=== PATIENT | male | born 1970 | race Caucasian/White ===

== ENCOUNTER 2019-03-15 10:34 | Emergency (ER) | payer SELFPAY ==
[~2019-03-15] VITALS: Ht 182.9 cm; Wt 86.4 kg
[~2019-03-15 10:34] MED LIST: BACTRIM DS 8001 TAB PO; FLOMAX0.4 MG PO; NO HOME MEDICATIONS; NORCO 325 MG-51 TAB PO
[2019-03-15] MEDS ORDERED: NORCO 7.5-3251 EACH PO (13:57)
[2019-03-15 14:00] VITALS: BP 112/67
== END 2019-03-15 14:15 | disposition home or self-care (01) ==
LOC: ED 10:34
DX: S32.040A Wedge compression fracture of fourth lumbar vertebra, initial encounter for closed fracture (principal); F17.210 Nicotine dependence, cigarettes, uncomplicated; Z23 Encounter for immunization; W17.89XA Other fall from one level to another, initial encounter; Y92.69 Other specified industrial and construction area as the place of occurrence of the external cause; Y99.0 Civilian activity done for income or pay

== ENCOUNTER → 2020-06-26 | Outpatient (CLI) | payer SELFPAY ==
[~2020-06-26] MED LIST changes: +NORCO 7.5-3251 EACH PO
[2020-06-26 10:42] LABS: EOS % 0.4 % (0.0-4.0); HEMATOCRIT 43.5 % (42.0-52.0); HEMOGLOBIN 14.5 g/dL (13.5-18.0); LYMPH# 1.5 (1.50-4.00); MEAN CELL VOLUME 91 fl (78-100); MEAN CORPUSCULAR HEMOGLOBIN 30 pg (27-31); MEAN CORPUSCULAR HGB CONC 33 g/dL (33-37); MEAN PLATELET VOLUME 9.6 fl (7.4-10.4); MONO # 0.5 (0.20-0.80); NEU # 2.6 (1.40-6.50); PLATELET COUNT 220 K/mm3 (130-400); RED BLOOD COUNT 4.78 M/mm3 (4.20-5.60); RED CELL DISTRIBUTION WIDTH 12.2 % (11.5-14.5); WHITE BLOOD COUNT 4.6 K/mm3 (4.8-10.8)
[2020-06-26 10:55] LABS: ALBUMIN 4.3 g/dL (3.5-5.0)
[2020-06-26 10:56] LABS: CALCIUM 9.2 mg/dL (8.3-10.5)
[2020-06-26 10:58] LABS: GLUCOSE 103 mg/dL (75-110); TOTAL PROTEIN 7.4 g/dL (6.4-8.3)
[2020-06-26 10:59] LABS: CARBON DIOXIDE 27 mmol/L (22-29); TOTAL BILIRUBIN 0.4 mg/dL (0.2-1.2)
[2020-06-26 11:03] LABS: AST-SGOT 20 U/L (5-34)
[2020-06-26 11:04] LABS: ALT/SGPT 25 U/L (0-55)
[2020-06-26 11:14] LABS: TROPONIN-I < 0.03 ng/mL (<0.030)
[2020-06-26 12:21] LABS: POTASSIUM 4.2 mmol/L (3.5-5.1); SODIUM 143 mmol/L (136-145)
== END ==
LOC: LAB 10:17 → RAD 10:17
PROVIDERS: Nurse Practitioner
DX: R07.9 Chest pain, unspecified (principal); R00.1 Bradycardia, unspecified